=== PATIENT | male | born 1955 | race Caucasian/White ===

== ENCOUNTER 2016-08-31 06:09 | Day surgery (SDC) | payer OTHER ==
[2016-08-31] MEDS ORDERED: PROPOFOL 200 MG/20 ML VIAL IVP ONE (06:33)
[2016-08-31] MEDS ORDERED: MIDAZOLAM 2 MG/2 ML VIAL IVP ONE (06:33)
[2016-08-31] MEDS ORDERED: NS 500 ML IV ONE (06:33)
[2016-08-31] MEDS ORDERED: BENZOCAINE UNIT DOSE SPRAY HURRICAINE MM ONE (06:33)
[2016-08-31] MEDS ORDERED: fentaNYL 100 MCG/2 ML INJ IVP ONE (06:33)
--- NOTE | 2016-08-31 06:41 | CPEKG ---
Heart Rate: 72 RR Interval: 833 P-R Interval: 276 QRSD Interval: 102 QT Interval: 408 QTC Interval: 447 P [place]: 95 QRS [place]: 80 T Wave [place]: 46 EKG Severity - ABNORMAL ECG - EKG Impression: ATRIAL FLUTTER WITH 4:1 CONDUCTION Electronically Signed By: Arnoldo Burns 31-Aug-2016 12:53:41
[2016-08-31 07:01] LABS: INR 1.11 (0.83-1.16); PROTIME(PATIENT) 14.2 SEC (12.0-15.0)
[2016-08-31 07:02] LABS: APTT 28.6 SEC (23.0-38.0)
[2016-08-31 07:11] LABS: ANION GAP 9 mEq/L (8-16); CALCIUM 9.1 mg/dL (8.5-10.4); CARBON DIOXIDE 24 mEq/l (22-31); CHLORIDE 109 mEq/L (97-110); CREATININE 0.8 mg/dL (0.7-1.3); GLOMERULAR FILTRATION RATE > 60; GLUCOSE 83 mg/dL (70-100); MAGNESIUM 2.1 mg/dL (1.6-2.3); POTASSIUM 4.1 mEq/L (3.5-5.2); SODIUM 142 mEq/L (134-144)
[2016-08-31] MEDS ORDERED: ATROPINE SULFATE 1 MG/10 ML SYR ONE (07:40)
[2016-08-31] MEDS ORDERED: LIDOCAINE 2% 5 ML SDV ONE (08:01)
[2016-08-31] MEDS ORDERED: PROPOFOL 200 MG/20 ML VIAL ONE (08:10)
--- NOTE | 2016-08-31 08:56 | CPEKG ---
Heart Rate: 66 RR Interval: 909 P-R Interval: 216 QRSD Interval: 84 QT Interval: 388 QTC Interval: 407 P [place]: 63 QRS [place]: 12 T Wave [place]: 40 EKG Severity - ABNORMAL ECG - EKG Impression: SINUS RHYTHM EKG Impression: FIRST DEGREE AV BLOCK EKG Impression: LOW VOLTAGE IN FRONTAL LEADS EKG Impression: SINUS RHYTHM HAS REPLACED AFLUTTER Electronically Signed By: Arnoldo Burns 31-Aug-2016 12:54:09
--- NOTE | 2016-08-31 17:00 | EPPROC ---
Electrophysiology Procedure Note: Procedure: CV Indication: Atrial flutter Procedure: Pt sedated by members of anesthesia staff. once sedated, WILI performed and LA clot ruled out. Pt was then Cv using DC at 200J. Pt converted to SR Conclusion: Successful Cv
== END 2016-08-31 11:30 | disposition home or self-care (01) ==
LOC: EEVIPCON 06:09 → FSGY 06:09
PROVIDERS: ATTEND Internal Medicine Cardiovascular Disease
PROC: 5A2204Z Restoration of Cardiac Rhythm, Single (ICD-10-PCS; principal; 2016-08-31)
DX: I48.92 Unspecified atrial flutter (principal); I45.9 Conduction disorder, unspecified; Z79.01 Long term (current) use of anticoagulants
CPT/HCPCS: J0461; J2704